=== PATIENT | female | born 1975 | race Hispanic/Latino ===

== ENCOUNTER 2017-02-13 14:31 | Emergency (ER) | payer OTHER, SELFPAY | END 2017-02-13 15:12 | disposition home or self-care (01) | LOC: ERS 14:31 | DX: J02.9 Acute pharyngitis, unspecified (principal); I10 Essential (primary) hypertension; G43.909 Migraine, unspecified, not intractable, without status migrainosus | CPT/HCPCS: 99283 ==

== ENCOUNTER 2017-06-12 21:26 | Emergency (ER) | payer SELFPAY ==
[2017-06-12] MEDS ORDERED: diphenhydrAMINE 50 MG/ML VIAL ONE (21:55)
[2017-06-12] MEDS ORDERED: Metoclopramide HCl 10 MG/2 ML VIAL ONE (21:55)
[2017-06-12] MEDS ORDERED: Ketorolac Tromethamine 30 MG/ML VIAL ONE (21:55)
== END 2017-06-12 23:03 | disposition home or self-care (01) ==
LOC: ERS 21:26
DX: R51 Headache (principal)
CPT/HCPCS: 96365; 96375; 99283; J1200; J1885; J2765

== ENCOUNTER 2017-10-20 20:26 | Emergency (ER) | payer SELFPAY ==
[2017-10-20] MEDS ORDERED: Ketorolac Tromethamine 30 MG/ML VIAL ONE (20:57)
[2017-10-20] MEDS ORDERED: Metoclopramide HCl 10 MG/2 ML VIAL ONE (20:57)
[2017-10-20] MEDS ORDERED: diphenhydrAMINE 50 MG/ML VIAL ONE (20:57)
[2017-10-20] MEDS ORDERED: Acetaminophen 500 MG TAB ONE (20:57)
== END 2017-10-20 22:10 | disposition home or self-care (01) ==
LOC: ERS 20:26
DX: G43.909 Migraine, unspecified, not intractable, without status migrainosus (principal)
CPT/HCPCS: 96365; 96375; J1200; J1885; J2765

== ENCOUNTER 2018-08-03 21:22 | Emergency (ER) | payer SELFPAY ==
[2018-08-03] MEDS ORDERED: Acetaminophen 325 MG TAB ONE (22:34)
[2018-08-03] MEDS ORDERED: Ketorolac Tromethamine 30 MG/ML VIAL ONE (22:34)
== END 2018-08-03 23:19 | disposition home or self-care (01) ==
LOC: ERS 21:22
DX: B34.9 Viral infection, unspecified (principal); G43.909 Migraine, unspecified, not intractable, without status migrainosus
CPT/HCPCS: 96372; J1885

== ENCOUNTER 2020-01-03 14:52 | Emergency (ER) | payer OTHER, SELFPAY ==
[2020-01-04 12:01] LABS: SARS-CoV-2 MS2 Positive; SARS-CoV-2 N Gene Negative; SARS-CoV-2 S Gene Negative; SARS-CoV-2 by NAA Not Detected (NotDetected); SARS-CoV-2 orf1ab Negative
== END 2020-01-03 15:10 | disposition home or self-care (01) ==
LOC: ERS 14:52
DX: R11.11 Vomiting without nausea (principal); R05 Cough; Z20.828 Contact with and (suspected) exposure to other viral communicable diseases; G43.909 Migraine, unspecified, not intractable, without status migrainosus
CPT/HCPCS: 87635; 99283; U0003

== ENCOUNTER 2020-02-13 15:48 | Emergency (ER) | payer SELFPAY ==
[2020-02-13] MEDS ORDERED: Ketorolac Tromethamine 30 MG/ML VIAL ONE (17:10)
[2020-02-13] MEDS ORDERED: Acetaminophen 500 MG TAB ONE (17:10)
[2020-02-13] MEDS ORDERED: Metoclopramide HCl 10 MG/2 ML VIAL ONE (17:10)
[2020-02-13] MEDS ORDERED: diphenhydrAMINE 50 MG/ML VIAL ONE (17:10)
[2020-02-13] MEDS ORDERED: Dexamethasone 10 MG/ML VIAL ONE (18:47)
[2020-02-13] MEDS ORDERED: HYDROcodone/Acetaminophen 5/325 mg Tablet ONE (19:55)
[2020-02-13] MEDS ORDERED: Ondansetron PF 4 MG/2 ML Vial ONE (19:56)
[2020-02-13] MEDS ORDERED: Magnesium 2 GM/50 ML BAG (IN WATER) ONE (19:56)
== END 2020-02-13 20:59 | disposition home or self-care (01) ==
LOC: ERS 15:48
DX: R51.9 Headache, unspecified (principal); I10 Essential (primary) hypertension
CPT/HCPCS: 96365; 96366; 96367; 96375; J1100; J1200; J1885; J2405; J2765; J3475

== ENCOUNTER 2020-05-16 19:02 | Emergency (ER) | payer SELFPAY ==
[2020-05-16] MEDS ORDERED: Ondansetron ODT 4 MG TAB ONE (19:34)
--- NOTE | 2020-05-16 19:56 | RAD ---
Portable frontal chest radiograph: 05/16/2020 COMPARISON: 12/31/2014 HISTORY: Cough FINDINGS: Lungs are clear. Heart and mediastinal contours appear within normal limits. IMPRESSION: No acute findings.
== END 2020-05-16 20:42 | disposition home or self-care (01) ==
LOC: ERS 19:02
DX: J06.9 Acute upper respiratory infection, unspecified (principal); R11.2 Nausea with vomiting, unspecified; Z20.822 Contact with and (suspected) exposure to COVID-19
CPT/HCPCS: 71045; Q0162

== ENCOUNTER 2020-09-09 22:23 | Emergency (ER) | payer OTHER, SELFPAY ==
[2020-09-09 23:06] LABS: #Lymphocytes 0.9 thou/uL (1.20-3.40); #Monocytes 0.5 thou/uL (0.11-0.59); #Neutrophils 15.9 thou/uL (1.40-6.50); %Basophils 0.2 % (0.0-1.0); %Eosinophils 0.2 % (0.0-10.0); %Lymphocytes 4.9 % (21.0-51.0); %Monocytes 2.7 % (0.0-10.0); Hemoglobin 13.6 g/dL (12.0-16.0); Mean Corpuscular HGB CONC 33.5 g/dL (32.0-36.0); Mean Corpuscular Hemoglobin 28.1 pg (27.0-31.0); Mean Corpuscular Volume 83.9 fL (78.0-98.0); Mean Platelet Volume 6.6 fL (7.4-10.4); Platelet Count 365 thou/uL (130-400); RBC Distribution Width 13.4 % (11.5-14.5); Red Blood Cell (RBC) Count 4.83 mill/uL (4.20-5.40); White Blood Cell (WBC) Count 17.3 thou/uL (4.8-10.8)
[2020-09-09] MEDS ORDERED: Ketorolac Tromethamine 30 MG/ML VIAL ONE (23:06)
[2020-09-09] MEDS ORDERED: Ondansetron ODT 8 MG TAB ONE (23:06)
[2020-09-09 23:14] LABS: Bacteria/HPF None Seen HPF (None Seen); Bilirubin Negative (Negative); Blood, Urine 3+ (Negative); Clarity Clear (Clear); Glucose, Urine (Dipstick) 50 mg/dL (Negative); Ketone, Urine 10 mg/dL (Negative); Leukocyte Negative Leu/uL (Negative); Nitrite Negative (Negative); Protein, Urine (Dipstick) 20 mg/dL (Neg-Trace); RBC/HPF 0-3 HPF (0-3); Specific Gravity, Urine 1.027 (1.002-1.036); Urobilinogen Normal mg/dL (Less than 2); WBC/HPF 0-3 HPF (0-3); pH, Urine 5.5 (5.0-9.0)
[2020-09-09 23:24] LABS: ALT (SGPT) 25 U/L (8-55); AST (SGOT) 18 U/L (5-34); Alkaline Phosphatase 83 U/L (40-110); Anion Gap 15 mmol/L (10-20); BUN (Urea Nitrogen) 10 mg/dL (7.0-18.7); Bilirubin, Total 0.4 mg/dL (0.2-1.2); Calc. Creatinine Clearance 0 mL/min (70-130); Calcium 9.1 mg/dL (7.8-10.44); Carbon Dioxide 22 mmol/L (22-29); Chloride 101 mmol/L (98-107); Globulin 3.6 g/dL (2.4-3.5); Glucose 156 mg/dL (70-105); Lipase 20 U/L (8-78); Potassium 3.5 mmol/L (3.5-5.1); Protein, Total 7.6 g/dL (6.0-8.3); Sodium 134 mmol/L (136-145)
== END 2020-09-09 23:50 | disposition home or self-care (01) ==
LOC: ERS 22:23
DX: R11.2 Nausea with vomiting, unspecified (principal); M79.10 Myalgia, unspecified site; T88.1XXA Other complications following immunization, not elsewhere classified, initial encounter
CPT/HCPCS: 36415; 80053; 81003; 81015; 83690; 85025; 96372; 99284; J1885; Q0162

== ENCOUNTER 2021-01-28 07:37 | Inpatient (IN) | payer SELFPAY ==
[2021-01-28 08:20] LABS: #Basophils 0.1 thou/uL (0.0-0.2); #Eosinphils 0.2 thou/uL (0.0-0.7); #Lymphocytes 2.2 thou/uL (1.20-3.40); #Monocytes 0.5 thou/uL (0.11-0.59); #Neutrophils 8.1 thou/uL (1.40-6.50); %Basophils 0.6 % (0.0-1.0); %Eosinophils 2.1 % (0.0-10.0); %Lymphocytes 19.4 % (21.0-51.0); %Monocytes 4.7 % (0.0-10.0); %Neutrophils 73.2 % (42.0-75.0); Hemoglobin 12.9 g/dL (12.0-16.0); Mean Corpuscular HGB CONC 31.8 g/dL (32.0-36.0); Mean Corpuscular Hemoglobin 26.8 pg (27.0-31.0); Mean Corpuscular Volume 84.3 fL (78.0-98.0); Mean Platelet Volume 6.6 fL (7.4-10.4); Platelet Count 444 thou/uL (130-400); RBC Distribution Width 13.1 % (11.5-14.5); Red Blood Cell (RBC) Count 4.81 mill/uL (4.20-5.40); White Blood Cell (WBC) Count 11.1 thou/uL (4.8-10.8)
[2021-01-28 08:44] LABS: ALT (SGPT) 35 U/L (8-55); AST (SGOT) 26 U/L (5-34); Alkaline Phosphatase 102 U/L (40-110); Anion Gap 13 mmol/L (10-20); BUN (Urea Nitrogen) 13 mg/dL (7.0-18.7); Bilirubin, Total 0.2 mg/dL (0.2-1.2); CK (CPK) 151 U/L (29-168); Calc. Creatinine Clearance 0 mL/min (70-130); Calcium 8.9 mg/dL (7.8-10.44); Carbon Dioxide 27 mmol/L (22-29); Chloride 102 mmol/L (98-107); Globulin 3.2 g/dL (2.4-3.5); Glucose 113 mg/dL (70-105); Protein, Total 7.2 g/dL (6.0-8.3); Sodium 138 mmol/L (136-145)
[2021-01-28] MEDS ORDERED: Aspirin Chewable 81 MG TAB ONE (08:44)
[2021-01-28] MEDS ORDERED: Nitroglycerin 2% Ointment 1 INCH/1 GM Packet ONE (08:44)
[2021-01-28 10:59] LABS: SARS-CoV-2 NAA Rapid Test Not Detected (NotDetected)
[2021-01-28 12:04] LABS: Troponin I Less than 0.010 ng/mL (< 0.028)
[2021-01-28] MEDS ORDERED: hydrALAZINE 20 MG/ML VIAL SLOW IVP PRN (12:05)
[2021-01-28] MEDS ORDERED: Acetaminophen 325 MG TAB PO PRN (12:05)
[2021-01-28] MEDS ORDERED: Aspirin 325 MG TAB PO SCH (12:15)
[2021-01-28 13:59] VITALS: BMI 39.9
[2021-01-28] MEDS: Nitroglycerin 2% Ointment 1 INCH/1 GM Packet TOP SCH ×2 (14:28→23:00)
[2021-01-28 15:19] LABS: Troponin I 0.011 ng/mL (< 0.028)
[2021-01-28] MEDS ORDERED: Lisinopril 5 MG TAB PO SCH (17:45)
[2021-01-28] MEDS ORDERED: Ketorolac Tromethamine 30 MG/ML VIAL IVP SCH (20:45)
[2021-01-28] MEDS ORDERED: diphenhydrAMINE 50 MG/ML VIAL IVP SCH (20:45)
[2021-01-28] MEDS ORDERED: Sodium Chloride 0.9% 1,000 ML IV SCH (20:45)
[2021-01-28] MEDS ORDERED: Prochlorperazine Edisylate 10 MG in Sodium Chloride 0.9% 50 ML IVPB SCH (21:00)
[2021-01-29 05:07] LABS: Hemoglobin A1c 5.5 % (4.0-6.0)
[2021-01-29 05:21] LABS: Cardiac Risk 5.3 (Less than 4.5)
[2021-01-29] MEDS: Nitroglycerin 2% Ointment 1 INCH/1 GM Packet TOP SCH ×3 (06:12→20:50)
[2021-01-29] MEDS ORDERED: ADENOSINE 60 MG/20 ML VIAL ONE (09:33)
[2021-01-29] MEDS: Aspirin 81 mg Enteric Coated Tablet PO SCH (13:02)
[2021-01-29] MEDS: Lisinopril 5 MG TAB PO SCH (13:02)
[2021-01-30] MEDS: Nitroglycerin 2% Ointment 1 INCH/1 GM Packet TOP SCH (06:09)
[2021-01-30] MEDS: Lisinopril 5 MG TAB PO SCH (08:53)
[2021-01-30] MEDS: Aspirin 81 mg Enteric Coated Tablet PO SCH (08:53)
[2021-01-30 11:43] VITALS: BP 148/74; TEMP 98.2
== END 2021-01-30 12:05 | disposition home or self-care (01) | DRG 305 ==
LOC: ERS 07:37 → 2NO 10:16 → INTOOBSV 10:16 → OBSVTOIN 01-30 09:26
PROVIDERS: ADMIT Internal Medicine; ATTEND Internal Medicine
DX: I16.0 Hypertensive urgency (principal); I10 Essential (primary) hypertension; Z20.822 Contact with and (suspected) exposure to COVID-19; I45.10 Unspecified right bundle-branch block; E66.01 Morbid (severe) obesity due to excess calories; G43.909 Migraine, unspecified, not intractable, without status migrainosus; I08.1 Rheumatic disorders of both mitral and tricuspid valves; E78.5 Hyperlipidemia, unspecified; Z88.8 Allergy status to other drugs, medicaments and biological substances; Z68.39 Body mass index [BMI] 39.0-39.9, adult; Z90.49 Acquired absence of other specified parts of digestive tract; Z98.51 Tubal ligation status
CPT/HCPCS: 36415; 71045; 78452; 80053; 80061; 82550; 83036; 84443; 84484; 85025; 93005; 93017; 93306; 96374; 96375; A9500; G0378; J0153; J0780; J1200; J1885; J7050; U0002

== ENCOUNTER 2022-04-14 07:59 | Emergency (ER) | payer SELFPAY ==
[2022-04-14] MEDS ORDERED: Ibuprofen 800 MG TAB ONE (08:05)
== END 2022-04-14 10:11 | disposition home or self-care (01) ==
LOC: ERS 07:59
DX: U07.1 COVID-19 (principal)
CPT/HCPCS: 99283

== ENCOUNTER 2025-01-22 02:37 | Emergency (ER) | payer SELFPAY ==
[2025-01-22] MEDS ORDERED: diphenhydrAMINE 50 MG/ML VIAL ONE (03:13)
[2025-01-22] MEDS ORDERED: Ondansetron PF 4 MG/2 ML Vial ONE (03:13)
[2025-01-22 03:37] LABS: #Basophils 0.04 10x3/uL (0.0-0.2); #Eosinophils 0.21 10x3/uL (0.0-0.7); #Monocytes 0.73 10x3/uL (0.11-0.59); #Neutrophils 11.61 10x3/uL (1.40-6.50); %Basophils 0.3 % (0.0-1.0); %Eosinophils 1.4 % (0.0-10.0); %Lymphocytes 14.1 % (21.0-51.0); %Monocytes 5.0 % (0.0-10.0); %Neutrophils 78.9 % (42.0-75.0); Hematocrit 36.4 % (36.0-47.0); Hemoglobin 11.4 g/dL (12.0-16.0); Mean Corpuscular Hemoglobin 23.7 pg (27.0-31.0); Mean Corpuscular Volume 75.7 fL (78.0-98.0); Platelet Count 457 10x3/uL (130-400); Red Blood Cell (RBC) Count 4.81 mill/uL (4.20-5.40); White Blood Cell (WBC) Count 14.72 10x3/uL (4.8-10.8)
[2025-01-22 04:03] LABS: ALT (SGPT) 23 U/L (Less than 34); AST (SGOT) 25 U/L (11-34); Albumin 3.8 g/dL (3.1-4.5); Alkaline Phosphatase 102 U/L (40-110); Anion Gap 17 mmol/L (10-20); BUN (Urea Nitrogen) 14 mg/dL (7.0-18.7); Bilirubin, Total 0.2 mg/dL (0.3-1.2); Calc. Creatinine Clearance 0 mL/min (70-130); Calcium 9.1 mg/dL (7.8-10.44); Carbon Dioxide 25 mmol/L (22-29); Chloride 100 mmol/L (98-107); Globulin 3.9 g/dL (2.4-3.5); Glucose 105 mg/dL (70-105); Potassium 3.3 mmol/L (3.5-5.1); Sodium 139 mmol/L (136-145)
[2025-01-22 05:19] LABS: Bacteria/HPF None Seen HPF (None Seen); CAUTI Indications for Culture Pelvic or flank pain; Glucose, Urine (Dipstick) Normal (Negative); Leukocyte Negative Leu/uL (Negative); Protein, Urine (Dipstick) Negative (Neg-Trace); RBC/HPF 0-3 HPF (0-3); Specific Gravity, Urine 1.013 (1.002-1.036); WBC/HPF 0-3 HPF (0-3)
[2025-01-22 05:30] LABS: Urine Culture Reflex No No
== END 2025-01-22 06:26 | disposition home or self-care (01) ==
LOC: ERS 02:37
DX: R42 Dizziness and giddiness (principal); I10 Essential (primary) hypertension; R29.700 NIHSS score 0
CPT/HCPCS: 70450; 71045; 80053; 81001; 85025; 87426; 93005; 96361; 96374; 96375; J1200